=== PATIENT | male | born 1945 | race Hispanic/Latino ===

== ENCOUNTER 2017-09-23 02:20 | Observation (INO) | payer BC, MEDICARE ==
[2017-09-23 02:48] VITALS: BMI 35.2
--- NOTE | 2017-09-23 03:05 | ED PDOC ---
Arrival/HPI - General Chief Complaint: Chest Pain Time Seen by Provider: 09/23/17 02:38 Historian: Patient, Spouse - Critical Care Critical Care Minutes: 45 minutes - History of Present Illness Narrative History of Present Illness (Text): you were treated in the ED today for history of atrial fibrilliation with ablation procedure, stress test last may without significant findings and now with chest pressure about 45minutes prior to ED visit, and you were otherwise without any nausea/vomiting/headache/dizziness/difficulty breathing/ chest pain/abdomen pain/numbness/tingling/loss of limb function/thoughts to harm yourself or others or hallucinations/travel/prior blood clots/prior cancer history. 09/23/17 03:02 Time/Duration: Prior to Arrival Symptom Onset: Gradual Symptom Course: Improving Quality: Pressure Severity Level: 1 Activities at Onset: Rest Context: Sitting Past Medical History - Provider Review Nursing Documentation Reviewed: Yes - Travel History Have you recently traveled outside [place] w/in the past 3 mons?: No - Past History Past History: Non-Contributing - Infectious Disease Hx of Infectious Diseases: None - Tetanus Immunization Tetanus Immunization: Unknown - Cardiac Hx Cardiac Disorders: Yes Hx Cardiac Arrhythmia: Yes (a fib) - Pulmonary Hx Respiratory Disorders: No - Neurological Hx Neurological Disorder: No - HEENT Hx HEENT Disorder: No - Renal Hx Renal Disorder: No - Endocrine/Metabolic Hx Endocrine Disorders: Yes (THYROID) Hx Hypothyroidism: Yes - Hematological/Oncological Hx Blood Disorders: No - Integumentary Hx Dermatological Disorder: No - Musculoskeletal/Rheumatological Hx Musculoskeletal Disorders: No - Gastrointestinal Hx Gastrointestinal Disorders: No - Genitourinary/Gynecological Hx Genitourinary Disorders: No - Psychiatric Hx Psychophysiologic Disorder: No Hx Depression: No Hx Emotional Abuse: No Hx Physical Abuse: No Hx Substance Use: No - Surgical History Hx Orthopedic Surgery: Yes (back surgery, R hand) - Suicidal Assessment Feels Threatened In Home Enviroment: No Family/Social History - Physician Review Nursing Documentation Reviewed: Yes Family/Social History: No Known Family HX Smoking Status: Former Smoker Hx Alcohol Use: Yes Frequency of alcohol use: Socially Hx Substance Use: No Hx Substance Use Treatment: No Allergies/Home Meds Allergies/Adverse Reactions: Allergies Iodinated Contrast- Oral and IV Dye Allergy (Verified 09/23/17 03:39) RASH meperidine [From Demerol] Allergy (Verified 09/23/17 03:39) ANAPHYLAXIS Home Medications: Home Meds Medication Instructions Recorded Confirmed Aspirin [Lo-Dose Aspirin EC] 81 mg PO DAILY 09/23/17 09/23/17 Ezetimibe/Simvastatin [Vytorin 10 1 tab PO DAILY 09/23/17 09/23/17 mg-20 mg] Lansoprazole [Prevacid] 30 mg PO DAILY 09/23/17 09/23/17 Levothyroxine Sodium [Synthroid] 200 mcg PO DAILY 09/23/17 09/23/17 Metoprolol Tartrate 25 mg PO BID 09/23/17 09/23/17 Tamsulosin [Flomax] 0.4 mg PO DAILY 09/23/17 09/23/17 Review of Systems - Physician Review All systems were reviewed & negative as marked: Yes - Review of Systems Constitutional: Normal Eyes: Normal ENT: Normal Respiratory: Normal Cardiovascular: Chest Pain Gastrointestinal: Normal Genitourinary Male: Normal Musculoskeletal: Normal Skin: Normal Neurological: Normal Endocrine: Normal Hemo/Lymphatic: Normal Psychiatric: Normal Physical Exam Vital Signs Reviewed: Yes Vital Signs Pulse Resp BP Pulse Ox 09/23/17 04:46 69 18 130/77 99 09/23/17 03:11 114 H 18 138/82 97 Appearance: Positive for: Well-Appearing, Non-Toxic, Comfortable Pain Distress: None Mental Status: Positive for: Alert and Oriented X 3 - Systems Exam Head: Present: Atraumatic, Normocephalic Pupils: Present: PERRL Extroacular Muscles: Present: EOMI Conjunctiva: Present: Normal Ears: Present: Normal Mouth: Present: Moist Mucous Membranes Pharnyx: Present: Normal Nose (External): Present: Atraumatic Nose (Internal): Present: Normal Inspection Neck: Present: Normal Range of Motion Respiratory/Chest: Present: Clear to Auscultation, Good Air Exchange Cardiovascular: Present: Regular Rate and Rhythm Abdomen: No: Tenderness, Distention, Normal Bowel Sounds, Peritoneal Signs, Rebound, Guarding, McBurney's Point Tender, Rovsing's Sign Present, Hernias, Feeding Tubes, Ostomy Tubes, Mass/Organomegaly, Scars, Other Back: Present: Normal Inspection Upper Extremity: Present: Normal Inspection Lower Extremity: Present: Normal Inspection Neurological: Present: GCS=15, CN II-XII Intact, Speech Normal, Motor Func Grossly Intact Skin: Present: Warm, Normal Color Psychiatric: Present: Alert, Oriented x 3, Normal Insight, Normal Concentration Medical Decision Making ED Course and Treatment: you were treated in the ED today for history of atrial fibrilliation with ablation procedure, stress test last may without significant findings and now with chest pressure about 45minutes prior to ED visit, and you were otherwise without any nausea/vomiting/headache/dizziness/difficulty breathing/ chest pain/abdomen pain/numbness/tingling/loss of limb function/thoughts to harm yourself or others or hallucinations/travel/prior blood clots/prior cancer history. you took full dose of aspirin prior to ED arrival. you were sitting up , comfortable, alert/oriented, good strength/sensation, no abdomen tenderness, pink skin. 09/23/17 03:05 09/23/17 04:21 wbc 8.1 hb 16 plts 171 trop <0.01 d-dimer 629 (age appropropriate for 72) 09/23/17 05:02 d/w Dr. Amaro who stated discuss with cardiology Dr. Henderson. 09/23/17 05:12 Dr. Rai cardiology/covering for Dr. Henderson who stated recommends admission for observation/chest pain rule out. - Lab Interpretations Lab Results: 09/23/17 02:38 09/23/17 02:38 Lab Results 09/23/17 02:38: Sodium 147, Potassium 4.1, Chloride 106, Carbon Dioxide 27, Anion Gap 18, BUN 20, Creatinine 0.8, Est GFR ( Amer) > 60, Est GFR (Non- Af Amer) > 60, Random Glucose 103, Calcium 10.0, Magnesium 2.2, Total Bilirubin 0.6, AST 36, ALT 38, Alkaline Phosphatase 89, Lactate Dehydrogenase 556, Total Creatine Kinase 98, Troponin I < 0.01, Total Protein 7.8, Albumin 4.2, Globulin 3.6, Albumin/Globulin Ratio 1.2 09/23/17 02:38: PT 12.1, INR 1.05, APTT 30.8, D-Dimer, Quantitative 629 H 09/23/17 02:38: WBC 8.1, RBC 5.31, Hgb 16.1, Hct 48.8, MCV 91.9, MCH 30.3, MCHC 33.0, RDW 13.3, Plt Count 171, MPV 12.2 H, Gran % 61.4, Lymph % (Auto) 28.1, [place] % (Auto) 7.7 H, Eos % (Auto) 2.4, Baso % (Auto) 0.4, Gran # 4.97, Lymph # ( Auto) 2.3, [place] # (Auto) 0.6, Eos # (Auto) 0.2, Baso # (Auto) 0.03 I have reviewed the lab results: Yes - RAD Interpretation Radiology Orders: 09/23/17 03:41 CHEST TWO VIEWS (PA/LAT) [RAD] Stat Radio Director: ED Physician (CXR no acute) - EKG Interpretation Interpreted by ED Physician: Yes (afib) Type: 12 lead EKG - Medication Orders Current Medication Orders: Discontinued Medications Metoprolol Tartrate (Lopressor) 25 mg PO STAT STA Stop: 09/23/17 03:51 Disposition/Present on Arrival - Present on Arrival Any Indicators Present on Arrival: No History of DVT/PE: No History of Uncontrolled Diabetes: No Urinary Catheter: No History of Decub. Ulcer: No History Surgical Site Infection Following: None - Disposition Have Diagnosis and Disposition been Completed?: Yes Diagnosis: Chest pain Disposition: HOSPITALIZED Disposition Time: 05:14 Patient Plan: Admission, Telemetry Condition: IMPROVED Discharge Instructions (ExitCare): Chest Pain (ED) Referrals: Gordon Estrada MD [Primary Care Provider] - Follow up with primary Forms: [employer] (Mongolian)
[2017-09-23 03:50] LABS: BASO # 0.03 K/mm3 (0.0-2.0); BASO % 0.4 % (0.0-3.0); EOS # 0.2 (0.0-0.7); EOS % 2.4 % (1.5-5.0); GRAN # 4.97 (1.4-6.5); GRAN % 61.4 % (50.0-68.0); HEMOGLOBIN 16.1 g/dL (14.0-18.0); LYMPH # 2.3 (1.2-3.4); LYMPH % 28.1 % (22.0-35.0); MEAN CELL VOLUME 91.9 fl (80.0-105.0); MEAN CORPUSCULAR HEMOGLOBIN 30.3 pg (25.0-35.0); MEAN PLATELET VOLUME 12.2 fl (7.0-11.0); MONO # 0.6 (0.1-0.6); MONO % 7.7 % (1.0-6.0); RBC 5.31 10^6/uL (3.5-6.1); RED CELL DISTRIBUTION WIDTH 13.3 % (11.5-14.5); WHITE BLOOD COUNT 8.1 10^3/ul (4.5-11.0)
[2017-09-23 04:02] LABS: INR 1.05 (0.93-1.08); PARTIAL THROMBOPLASTIN TIME 30.8 Seconds (25.1-36.5); PROTHROMBIN TIME 12.1 SECONDS (9.4-12.5)
[2017-09-23 04:03] LABS: ALB/GLOB RATIO 1.2 (1.1-1.8); ALBUMIN 4.2 g/dL (3.0-4.8); ALT/SGPT 38 U/L (7-56); AST/SGOT 36 U/L (17-59); BLOOD UREA NITROGEN 20 mg/dL (7-21); GFR AFRICAN-AMERICAN > 60; GFR NON-AFRICAN AMERICAN > 60; MAGNESIUM 2.2 mg/dL (1.7-2.2)
[2017-09-23 04:15] LABS: TROPONIN I < 0.01 ng/mL
--- NOTE | 2017-09-23 09:55 | RAD ---
HISTORY: Chest pain COMPARISON: 09/01/2012, 10/10/2014. TECHNIQUE: Chest PA and lateral FINDINGS: LUNGS: No active pulmonary disease. PLEURA: No significant pleural effusion identified. No pneumothorax apparent. CARDIOVASCULAR: No radiographic findings to suggest acute or significant cardiovascular disease. OSSEOUS STRUCTURES: No significant abnormalities. VISUALIZED UPPER ABDOMEN: Normal. OTHER FINDINGS: None. IMPRESSION: No active disease. No significant interval change compared to the prior examination(s).
[2017-09-23] MEDS ORDERED: Enoxaparin 80 mg Syringe SC SCH (15:45)
--- NOTE | 2017-09-23 16:42 | CARD ---
APPROVED REPORT EKG Measurement Heart [id number] <Conclusion> Atrial fibrillation with rapid ventricular response Left anterior fascicular block Junctional ST depression, probably normal Abnormal ECG
[2017-09-23] MEDS ORDERED: Iohexol 350 MG/100 ML VIAL ONE (18:59)
[2017-09-23] MEDS ORDERED: Influenza Vaccine 60 mcg/0.5 mL SYR (4YR UP) IM ONE (21:19)
[2017-09-23] MEDS ORDERED: Pneumococcal 23-Valent Vaccine IM ONE (21:19)
[2017-09-23] MEDS: Enoxaparin 120 mg Syringe SC SCH (21:31)
--- NOTE | 2017-09-23 22:04 | HP ---
HISTORY OF PRESENT ILLNESS: The patient is a 72 year old man with multiple medical comorbidities including AFib s/p ablation, hyperlipidemia and hypertension who presented to [facility] for evaluation of a sudden onset of sharp, stabbing substernal chest pain that awoke him from his sleep. The patient reports being in his usual state of health in the days prior to his presentation to the ED and denies any recent angina, orthopnea, edema or palpitations. He went to bed that night feeling well and was suddenly awakened by this substernal chest pain. Given that it did not resolve spontaneously after several minutes his called EMS. By the time of arrival to the ED his symptoms had resolved. Given his comorbidities, however, he was advised that it would be prudent to monitor him and cycle cardiac enzymes and EKGs so as to rule out an underlying cardiac cause of his chest pain. Of note, the patient had a nuclear stress test performed with Dr. Henderson in 04/2017 as part of preoperative workup which was negative for ischemia. PAST MEDICAL HISTORY: As per HPI, also hypothyroidism, GERD, BPH, COPD, anxiety disorder and sciatica. ALLERGIES: IV CONTRAST, MEPERIDINE. MEDICATIONS: Synthroid 200 mcg p.o. daily, Vytorin 10/20 mg p.o. daily, Prevacid 30 mg p.o. b.i.d., Flomax 0.4 mg p.o. daily, Lopressor 25 mg p.o. b.i.d., Levitra 20 mg p.o. prn, Xanax 0.5 mg p.o. b.i.d., Lidex gel and Aceon 4 mg p.o. daily. FAMILY HISTORY: Non-contributory. SOCIAL HISTORY: The patient reports social alcohol use and a remote history of tobacco use (he quit over 15 years ago). He denies illicit drug abuse. REVIEW OF SYSTEMS: A 14-point review of systems is negative except as per HPI. PHYSICAL EXAMINATION: VITAL SIGNS: Temperature 98.2, pulse 60, blood pressure 120/73, respiratory rate 18 and oxygen saturation 99% on room air. GENERAL: No apparent distress. HEENT: PERRL. EOMI. No scleral icterus. No conjunctivae or pallor. NECK: Supple with full range of motion. No JVD. No bruits. LUNGS: Clear to auscultation. CARDIOVASCULAR: Regular rate and rhythm. Normal S1 and S2. ABDOMEN: Normoactive bowel sounds. Soft, nontender and nondistended. EXTREMITIES: No edema. NEUROLOGIC: Awake, alert and oriented x3. No focal, motor deficits. LABORATORY DATA: CBC reviewed and unremarkable. CMP reviewed and unremarkable. Troponin less than 0.01. D-dimer 629. ASSESSMENT: The patient is a 72 year old man with multiple medical comorbidities who presented for evaluation of a sudden onset of sharp substernal chest pain which awakened him from sleep and resolved by the time of presentation to the ED who was admitted to r/o ACS. PLAN: 1. Chest pain, r/o ACS. The patient reports resolution of his symptoms by the time of arrival to the ED and initial troponin was negative. We will cycle cardiac enzymes and EKG q. 8 hours for 3 sets. Of note, the patient had a negative stress test in 04/2017. He is noted to have an elevated D-dimer however he is not tachypneic or hypoxic and this elevated D-dimer may be secondary to his recent surgery, inflammation and his age. We will discuss with the patient the potential need for V/Q scan, given his allergies to IV contrast, which preclude the possibility of a CT angiogram to rule out pulmonary embolism. 2. Hypertension. Blood pressure controlled. Continue Lopressor 25 mg p.o. b.i.d. 3. Hyperlipidemia. We will repeat lipid panel in the morning. In the interim , we will start Lipitor 20 mg p.o. daily. The patient is on Vytorin at home however this is not on formulary. 4. AFib s/p ablation. The patient remains in sinus rhythm. Continue with Metoprolol 25 mg p.o. b.i.d. and ASA 81 mg p.o. daily. 5. BPH. Resume Flomax 0.4 mg p.o. daily. 6. Hypothyroidism. Resume Synthroid 200 mcg p.o. daily. We will check a TSH in the morning. 7. GERD. We will start the patient on Pepcid 40 mg p.o. daily. 8. Anxiety disorder. Resume Xanax 0.5 mg p.o. b.i.d. CODE STATUS: Full code. Gary Estrada MD [place]
[2017-09-23 23:44] VITALS: RESP 18
--- NOTE | 2017-09-24 02:51 | CON ---
DATE: REASON FOR CONSULTATION: Chest pain. HISTORY OF PRESENT ILLNESS: Patient is a 72-year-old male, who has a history of hypertension, hyperlipidemia. He underwent cardiac catheterization twice at [facility], the most recent one about 3 years ago and he was told it was okay. Patient presents because of chest pain, that is heaviness in nature, that wake him up from sleep. The patient denies any associated diaphoresis or shortness of breath. SOCIAL HISTORY: The patient quit smoking many years ago, more than 20 years ago. PAST MEDICAL HISTORY: Hypertension and hyperlipidemia. Patient had a recent right hand surgery in [facility]. MEDICATIONS: Aspirin 81 mg once a day, Flomax 0.4 mg once a day, Lipitor 20 mg once a day, Lopressor 25 mg twice a day, Synthroid 200 mcg once day, Xanax 0.5 mg twice a day and Pepcid 40 mg once a day. PHYSICAL EXAMINATION: GENERAL: The patient is an elderly male, who does not appear to be in any distress. VITAL SIGNS: Blood pressure 148/80, heart rate 56, respirations 18. Temperature is not post yet in the [facility] database. HEENT: Normocephalic. NECK: No JVD. CHEST: Clear. HEART: S1 and S2, regular. ABDOMEN: Soft. EXTREMITIES: No edema. LABORATORY DATA: CBC: WBC 8.1, hemoglobin 16.1, hematocrit 48.8, platelet count 171,000. PT, PTT, INR are within normal limits. D-dimer is elevated at 629. SMA-7 is within normal limits. Two sets of troponins are negative. EKG revealed atrial fibrillation with rapid ventricular response. ASSESSMENT: 1. Chest pain. Myocardial infarction is ruled out. 2. Atrial fibrillation and status post ablation procedure in the past. RECOMMENDATIONS: Continue current aspirin 81 mg once a day, Lopressor 25 mg once a day, Lipitor 20 mg once a day, Synthroid 200 mcg once day. Obtain TSH level. Start therapeutic subcutaneous Lovenox. Obtain chest CT angio to rule out pulmonary embolism. Schedule patient for an echocardiogram. Jomar Thomposn MD [facility] # [id number]
[2017-09-24] MEDS ORDERED: Levothyroxine 200 MCG TAB PO SCH (06:00)
[2017-09-24 06:02] VITALS: O2SAT 95
[2017-09-24 07:34] LABS: BASO # 0.02 K/mm3 (0.0-2.0); BASO % 0.3 % (0.0-3.0); EOS # 0.1 (0.0-0.7); EOS % 1.8 % (1.5-5.0); GRAN # 4.79 (1.4-6.5); GRAN % 69.9 % (50.0-68.0); HEMOGLOBIN 14.3 g/dL (14.0-18.0); LYMPH # 1.4 (1.2-3.4); LYMPH % 20.3 % (22.0-35.0); MEAN CELL VOLUME 91.5 fl (80.0-105.0); MEAN CORPUSCULAR HEMOGLOBIN 29.6 pg (25.0-35.0); MEAN CORPUSCULAR HGB CONC 32.4 g/dl (31.0-37.0); MEAN PLATELET VOLUME 11.9 fl (7.0-11.0); MONO # 0.5 (0.1-0.6); MONO % 7.7 % (1.0-6.0); RBC 4.83 10^6/uL (3.5-6.1); WHITE BLOOD COUNT 6.9 10^3/ul (4.5-11.0)
[2017-09-24 08:05] LABS: ALB/GLOB RATIO 1.1 (1.1-1.8); ALBUMIN 3.5 g/dL (3.0-4.8); ALT/SGPT 27 U/L (7-56); AST/SGOT 23 U/L (17-59); BLOOD UREA NITROGEN 18 mg/dL (7-21); CALCIUM 9.4 mg/dL (8.4-10.5); GFR AFRICAN-AMERICAN > 60; GFR NON-AFRICAN AMERICAN > 60
[2017-09-24] MEDS: Enoxaparin 120 mg Syringe SC SCH (10:37)
--- NOTE | 2017-09-24 11:03 | NM ---
COMPARISON: September 23, 2017. TECHNIQUE: 35.0 mCi technetium 99-m DTPA aerosol. 4.0 mCI technetium 99-m MAA administered intravenously. FINDINGS: VENTILATION COMPONENT: Mildly heterogeneous ventilation. Retention of radionuclide in the tracheobronchial tree and ingestion of radionuclide in the stomach, incidental findings PERFUSION COMPONENT: Heterogeneous distribution of radionuclide. No geographic, segmental, lobar abnormalities apparent on the present examination. IMPRESSION: Low probability ventilation perfusion scan for pulmonary embolism.
[2017-09-24 11:05] LABS: TROPONIN I < 0.01 ng/mL
[2017-09-24 12:15] VITALS: BP 132/86; PULSE 57; TEMP 98
--- NOTE | 2017-09-24 13:54 | PN ---
DATE: 09/24/2017 REASON FOR CONSULTATION AND FOLLOWUP: Chest pain which is completely resolved. OBJECTIVE: GENERAL: Not in apparent distress. VITAL SIGNS: Temperature afebrile, heart rate , blood pressure 120/64. HEENT: PERRLA. Extraocular muscles intact. NECK: Supple. No carotid bruit or thyromegaly. CHEST: Clear to auscultation. HEART: S1 and S2, regular. ABDOMEN: Soft. EXTREMITIES: Clubbing and cyanosis negative LABORATORY DATA: Blood workup as follows: WBC 6.9, hemoglobin , hematocrit 44.2, platelet count 146. Chemistry shows sodium 140, potassium 4.2, chloride 105, carbon dioxide 30, anion gap of 4. BUN 18, creatinine 0.8. So far troponin remains negative. ASSESSMENT AND PLAN: History of cardiac catheterization twice 10 years ago and most recent one 2 to 3 years ago at [facility] by Dr. Ojeda, told essentially normal coronaries. Patient presented with shortness of breath, so far troponin remains negative. Patient presented with atrial fibrillation, converted to normal sinus, but these symptoms could be secondary to atrial fibrillation. If the third sets are negative, we will adjust the medication beta-tammi and discharge him home. Patient is going for V/Q scan. Juan A Bustos MD
--- NOTE | 2017-09-24 14:40 | PN ---
DATE: ADDENDUM Chart overall reviewed. Patient admitted with atrial fibrillation; rapid rate converted to normal sinus; history of atrial fibrillation, is status post radiofrequency ablation. Initially, I have increased the metoprolol to 50, but I saw the patient, he is in now bradycardia. Heart rate is in 52, so we will return back to metoprolol 25 b.i.d. but load with amiodarone 400 mg p.o. b.i.d. for today followed by 200 mg once a day. CAT offered to the patient that if patient has any chest pain, then probably patient needs the cardiac catheterization. Patient does not want cardiac catheterization. He stated that he had cardiac catheterization twice 10 years ago and [address] Ojeda, was told it was absolutely normal. So, I told him we will get the V/Q scan. We will start amiodarone. If everything is negative, we may send home and we will add on one more troponin for this morning sample and one more tomorrow. If troponin remains negative, he will be discharged home tomorrow. Thank you, for providing us the opportunity in taking care of Chaitanya Sanabria. Juan A Bustos MD
--- NOTE | 2017-09-24 18:36 | PN ---
SUBJECTIVE: The patient was seen and examined at bedside on the remote telemetry oh. No acute events overnight. He remains afebrile, hemodynamically stable and chest pain free. The patient denies any recurrence of his presenting symptoms and this morning he states he feels great and wants to go home. OBJECTIVE: VITAL SIGNS: Temperature 98, pulse 57, blood pressure 132/86, respiratory rate 18, oxygen saturation 95% on room air. GENERAL: In no apparent distress. HEENT: PERRL. EOMI. No scleral icterus. No conjunctival pallor. NECK: Supple with full range of motion. No JVD. No bruits. LUNGS: Clear to auscultation. CARDIOVASCULAR: Regular rate and rhythm. Normal S1 and S2. ABDOMEN: Normoactive bowel sounds, soft, nontender, and nondistended. EXTREMITIES: No edema. NEUROLOGICAL: Awake, alert, and oriented x3. No focal or motor deficits. LABORATORY DATA: CBC reviewed and unremarkable. CMP reviewed and unremarkable. DIAGNOSTIC STUDIES: V/Q scan demonstrates low probability for PE. ASSESSMENT: The patient is a 72 year old man with multiple medical comorbidities who presented for evaluation of sudden onset of sharp substernal chest pain which awakened him from sleep and resolved by the time of presentation to the ED who was admitted to rule out acute coronary syndrome with subsequent workup demonstrating no evidence of acute coronary syndrome. PLAN: 1. Chest pain, rule out ACS. Patient has had three sets of negative cardiac enzymes and unremarkable EKGs. A V/Q scan was also low probability for PE. He remains afebrile, hemodynamically stable and chest pain free. At present he declines cardiac catheterization and states he will follow up with his bacteriologist soil upon discharge. Continue ASA, Metoprolol and Lipitor. 2. Hypertension. Blood pressure controlled. Continue Metoprolol 25 mg p.o. b.i.d. 3. Hyperlipidemia. Continue Lipitor 20 mg p.o. daily. Patient to resume his Vytorin upon discharge. 4. AFib s/p ablation. Patient remains rate controlled. Continue Metoprolol 25 mg p.o. b.i.d. and Aspirin 81 mg p.o. daily. 5. BPH. Continue Flomax 0.4 mg p.o. daily. 6. Hypothyroidism. Continue Synthroid 200 mcg p.o. daily. 7. GERD. Continue Pepcid 40 mg p.o. daily. 8. Anxiety disorder. Continue Xanax 0.5 mg p.o. b.i.d. 9. Prophylaxis. GI prophylaxis not indicated as the patient is eating. DVT prophylaxis not indicated as the patient is ambulatory. CODE STATUS: Full code. Gary Estrada MD [facility]
--- NOTE | 2017-09-24 21:02 | CARD ---
APPROVED REPORT EKG Measurement Heart [id number] <Conclusion> Sinus bradycardia Left anterior fascicular block Abnormal ECG
== END 2017-09-24 14:26 | disposition home or self-care (01) ==
LOC: ED 02:20 → ERH 05:15 → 3RSO 16:28
PROVIDERS: ADMIT Internal Medicine; ATTEND Internal Medicine
DX: R07.9 Chest pain, unspecified (principal); I48.91 Unspecified atrial fibrillation; I10 Essential (primary) hypertension; E78.5 Hyperlipidemia, unspecified; N40.0 Benign prostatic hyperplasia without lower urinary tract symptoms; K21.9 Gastro-esophageal reflux disease without esophagitis; J44.9 Chronic obstructive pulmonary disease, unspecified; E03.9 Hypothyroidism, unspecified; F41.9 Anxiety disorder, unspecified; Z87.891 Personal history of nicotine dependence
CPT/HCPCS: 36415; 71046; 78582; 80053; 82550; 83615; 83735; 84443; 84484; 85025; 85378; 85610; 85730; 93005; 99285; G0378; J1650; Q9967